=== PATIENT | female | born 1975 | race Caucasian/White ===

== ENCOUNTER → 2022-05-09 | Outpatient (CLI) | payer BC | LOC: KOH-I 10:30 | DX: R10.9 Unspecified abdominal pain (principal); K76.0 Fatty (change of) liver, not elsewhere classified | CPT/HCPCS: 76700 ==

== ENCOUNTER → 2022-05-15 | Outpatient (CLI) | payer BC ==
[2022-05-15 08:35] LABS: HEMOGLOBIN 11.3 gm/dl (12.3-15.3); RED BLOOD COUNT 4.52 M/UL (4.00-5.10); WHITE BLOOD COUNT 6.9 K/UL (4.5-11.0)
[2022-05-15 09:45] LABS: BUN/CREATININE RATIO 18 (0-10)
[2022-05-16 07:10] LABS: VITAMIN D, 25-HYDROXY 12.2 ng/mL (30.0-100.0)
== END ==
LOC: CT 08:04
PROVIDERS: Nurse Practitioner Family
DX: R19.00 Intra-abdominal and pelvic swelling, mass and lump, unspecified site (principal); L03.90 Cellulitis, unspecified; E05.20 Thyrotoxicosis with toxic multinodular goiter without thyrotoxic crisis or storm; E87.5 Hyperkalemia; K76.9 Liver disease, unspecified; M10.9 Gout, unspecified
CPT/HCPCS: 36415; 80053; 80061; 83036; 84439; 84443; 84481; 85027; Q9967